=== PATIENT | female | born 1985 | race Caucasian/White ===

== ENCOUNTER 2024-04-14 19:12 | Emergency (ER) | payer BC ==
[2024-04-14 19:31] VITALS: BP 114/81; PULSE 82; RESP 16; TEMP 97.7; BMI 22.1
[2024-04-14 19:46] LABS: HEMATOCRIT 40.9 % (32.4-45.2); HEMOGLOBIN 13.6 G/dL (10.7-15.3); MCHC 33.2 g/dl (32.0-36.0); MEAN CELL VOLUME 93.4 fl (80-96); MEAN PLT VOLUME 8.6 fl (7.5-11.1); PLATELET COUNT 221.3 10^3/uL (134-434); RBC 4.38 10^6/uL (3.60-5.2); RDW 13.9 % (11.6-15.6); WHITE BLOOD COUNT 6.3 10^3/uL (4.0-10.8)
[2024-04-14 19:49] LABS: HCG,QUALITATIVE URINE Negative
[2024-04-14 20:01] LABS: PLATELET ESTIMATE ADEQUATE
[2024-04-14 20:02] LABS: ALBUMIN 4.7 g/dl (3.4-5.0); BILIRUBIN,TOTAL 0.7 mg/dl (0.2-1); CALCIUM 9.5 mg/dl (8.5-10.1); CREATININE 0.7 mg/dl (0.6-1.3); POTASSIUM 3.4 mmol/L (3.5-5.1)
== END 2024-04-14 21:43 | disposition home or self-care (01) ==
LOC: FER 19:12
DX: I47.1 Supraventricular tachycardia (principal); R00.0 Tachycardia, unspecified; Z20.822 Contact with and (suspected) exposure to COVID-19
CPT/HCPCS: 0241U-QW; 36415; 80053; 81003; 83735; 84443; 84479; 84484; 84703; 85027; 93005; 99284-25